=== PATIENT | male | born 1965 | race Caucasian/White ===

== ENCOUNTER 2022-10-20 17:42 | Emergency (ER) | payer OTHER ==
[2022-10-20 18:35] LABS: #Basophils 0.1 thou/uL (0.0-0.2); #Eosinphils 0.1 thou/uL (0.0-0.7); #Lymphocytes 1.3 thou/uL (1.20-3.40); #Monocytes 0.5 thou/uL (0.11-0.59); #Neutrophils 7.5 thou/uL (1.40-6.50); %Basophils 0.8 % (0.0-1.0); %Eosinophils 1.4 % (0.0-10.0); %Lymphocytes 13.5 % (21.0-51.0); %Monocytes 5.5 % (0.0-10.0); %Neutrophils 78.8 % (42.0-75.0); Hemoglobin 12.9 g/dL (14.0-18.0); Mean Corpuscular HGB CONC 34.1 g/dL (32.0-36.0); Mean Corpuscular Hemoglobin 31.2 pg (27.0-31.0); Mean Corpuscular Volume 91.4 fl (78.0-98.0); Mean Platelet Volume 6.6 fL (7.4-10.4); Platelet Count 290 10x3/uL (130-400); RBC Distribution Width 12.7 % (11.5-14.5); Red Blood Cell (RBC) Count 4.14 mill/uL (4.70-6.10); White Blood Cell (WBC) Count 9.5 10x3/uL (4.8-10.8)
[2022-10-20] MEDS ORDERED: Ketorolac Tromethamine 30 MG/ML VIAL ONE (18:52)
[2022-10-20] MEDS ORDERED: Morphine 4 MG/ML VIAL ONE (18:52)
[2022-10-20 18:56] LABS: ALT (SGPT) 17 U/L (8-55); AST (SGOT) 19 U/L (5-34); Alkaline Phosphatase 65 U/L (40-110); Anion Gap 14 mmol/L (10-20); BUN (Urea Nitrogen) 10 mg/dL (8.4-25.7); Bilirubin, Total 0.5 mg/dL (0.2-1.2); Calc. Creatinine Clearance 0 mL/min (70-130); Calcium 8.9 mg/dL (7.8-10.44); Carbon Dioxide 23 mmol/L (22-29); Chloride 106 mmol/L (98-107); Estimated GFR 93; Globulin 3.2 g/dL (2.4-3.5); Glucose 146 mg/dL (70-105); Potassium 4.2 mmol/L (3.5-5.1); Protein, Total 7.2 g/dL (6.0-8.3); Sodium 139 mmol/L (136-145)
[2022-10-20] MEDS ORDERED: Naproxen 500 MG TAB ONE (19:35)
[2022-10-20] MEDS ORDERED: Cephalexin 250 MG CAP ONE (19:42)
== END 2022-10-20 19:45 ==
LOC: ERS 17:42
DX: L03.113 Cellulitis of right upper limb (principal); M25.521 Pain in right elbow; E11.9 Type 2 diabetes mellitus without complications; Z79.4 Long term (current) use of insulin; Z79.84 Long term (current) use of oral hypoglycemic drugs
CPT/HCPCS: 36415; 80053; 85025; J1885; J2270

== ENCOUNTER 2022-12-16 12:40 | Inpatient (IN) | payer OTHER ==
[~2022-12-16 12:40] MED LIST: Iopamidol-370 76% 500 ML MDV (1 ML CHARGE) ONE
[2022-12-16 13:39] LABS: #Eosinphils 0.2 thou/uL (0.0-0.7); #Lymphocytes 1.4 thou/uL (1.20-3.40); #Monocytes 0.4 thou/uL (0.11-0.59); #Neutrophils 4.5 thou/uL (1.40-6.50); %Basophils 0.7 % (0.0-1.0); %Eosinophils 2.6 % (0.0-10.0); %Lymphocytes 22.1 % (21.0-51.0); %Neutrophils 68.6 % (42.0-75.0); Hemoglobin 12.6 g/dL (14.0-18.0); Mean Corpuscular HGB CONC 33.5 g/dL (32.0-36.0); Mean Corpuscular Hemoglobin 29.9 pg (27.0-31.0); Mean Corpuscular Volume 89.3 fl (78.0-98.0); Mean Platelet Volume 7.1 fL (7.4-10.4); Platelet Count 235 10x3/uL (130-400); Red Blood Cell (RBC) Count 4.21 mill/uL (4.70-6.10); White Blood Cell (WBC) Count 6.5 10x3/uL (4.8-10.8)
[2022-12-16 14:02] LABS: ALT (SGPT) 16 U/L (8-55); AST (SGOT) 17 U/L (5-34); Albumin 4.1 g/dL (3.5-5.0); Alkaline Phosphatase 78 U/L (40-110); Anion Gap 15 mmol/L (10-20); BUN (Urea Nitrogen) 18 mg/dL (8.4-25.7); Bilirubin, Total 0.4 mg/dL (0.2-1.2); Calc. Creatinine Clearance 0 mL/min (70-130); Calcium 9.4 mg/dL (7.8-10.44); Carbon Dioxide 19 mmol/L (22-29); Chloride 106 mmol/L (98-107); Estimated GFR 80; Globulin 3.6 g/dL (2.4-3.5); Glucose 186 mg/dL (70-105); Potassium 4.4 mmol/L (3.5-5.1); Protein, Total 7.7 g/dL (6.0-8.3); Sodium 136 mmol/L (136-145)
[2022-12-16] MEDS ORDERED: Vancomycin HCl 2.5 GM in Sodium Chloride 0.9% 500 ML IVPB SCH (14:30)
[2022-12-16 14:51] LABS: Bilirubin Negative (Negative); Blood, Urine Negative (Negative); Clarity Clear (Clear); Glucose, Urine (Dipstick) 100 mg/dL (Negative); Ketone, Urine Negative (Negative); Leukocyte Negative Leu/uL (Negative); Nitrite Negative (Negative); Protein, Urine (Dipstick) Negative (Neg-Trace); Specific Gravity, Urine 1.022 (1.002-1.036); Urobilinogen Normal mg/dL (Less than 2); pH, Urine 6.5 (5.0-9.0)
[2022-12-16 15:47] LABS: SARS-CoV-2 NAA Rapid Test Not Detected (NotDetected)
[2022-12-16] MEDS ORDERED: Acetaminophen 500 MG TAB ONE (16:01)
[2022-12-16] MEDS ORDERED: Dextrose 5% in Water 1,000 ML IV PRN (16:44)
[2022-12-16] MEDS ORDERED: Dextrose 50% Abboject 50 ML SYRINGE SLOW IVP PRN (16:44)
[2022-12-16] MEDS ORDERED: Acetaminophen 325 MG TAB PO PRN (16:44)
[2022-12-16] MEDS ORDERED: HumaLOG 300 UNITS/3 ML VIAL SC PRN ×2 (16:44)
[2022-12-16] MEDS ORDERED: hydrALAZINE 20 MG/ML VIAL SLOW IVP PRN (16:44)
[2022-12-16 17:30] VITALS: BMI 31.2
[2022-12-16] MEDS: HYDROcodone/Acetaminophen 5/325 mg Tablet PO PRN (20:39)
[2022-12-16] MEDS ORDERED: Vancomycin 1 GM in Premix Bag 1 BAG IVPB SCH (21:00)
[2022-12-17] MEDS: Vancomycin 1 GM in Premix Bag 1 BAG IVPB SCH ×2 (02:43→15:31)
[2022-12-17 07:45] LABS: #Eosinphils 0.2 thou/uL (0.0-0.7); #Lymphocytes 1.3 thou/uL (1.20-3.40); #Monocytes 0.4 thou/uL (0.11-0.59); #Neutrophils 3.1 thou/uL (1.40-6.50); %Basophils 0.3 % (0.0-1.0); %Eosinophils 3.1 % (0.0-10.0); %Lymphocytes 25.3 % (21.0-51.0); %Monocytes 7.9 % (0.0-10.0); %Neutrophils 63.4 % (42.0-75.0); Hemoglobin 12.5 g/dL (14.0-18.0); Mean Corpuscular HGB CONC 33.8 g/dL (32.0-36.0); Mean Corpuscular Hemoglobin 30.6 pg (27.0-31.0); Mean Corpuscular Volume 90.4 fl (78.0-98.0); Mean Platelet Volume 6.9 fL (7.4-10.4); Platelet Count 214 10x3/uL (130-400); RBC Distribution Width 13.1 % (11.5-14.5); Red Blood Cell (RBC) Count 4.09 mill/uL (4.70-6.10); White Blood Cell (WBC) Count 4.9 10x3/uL (4.8-10.8)
[2022-12-17 08:01] LABS: Anion Gap 13 mmol/L (10-20); BUN (Urea Nitrogen) 13 mg/dL (8.4-25.7); Calc. Creatinine Clearance 125 mL/min (70-130); Calcium 8.8 mg/dL (7.8-10.44); Carbon Dioxide 23 mmol/L (22-29); Chloride 104 mmol/L (98-107); Estimated GFR 93; Glucose 139 mg/dL (70-105); Sodium 136 mmol/L (136-145)
[2022-12-17] MEDS: HYDROcodone/Acetaminophen 5/325 mg Tablet PO PRN ×2 (09:36→21:32)
[2022-12-17] MEDS ORDERED: Insulin Regular 300 UNITS/3 ML VIAL SC SCH (10:15)
[2022-12-17] MEDS ORDERED: Piperacillin/Tazobactam 3.375 GM in Sodium Chloride 0.9% 100 ML IVPB SCH ×2 (12:00→14:00)
[2022-12-17] MEDS ORDERED: Non-Formulary Item 1 EACH (Metformin Hcl [Metformin Hcl] 1,000 MG Tablet) PO SCH (21:00)
[2022-12-17] MEDS ORDERED: Insulin NPH Human Isophane 100 UNIT/ML (10 ML VIAL) SC SCH (21:00)
[2022-12-17] MEDS: Terazosin HCl 5 MG CAP PO SCH (21:31)
[2022-12-17] MEDS: Atorvastatin Calcium 20 MG TAB PO SCH (21:31)
[2022-12-17] MEDS: metFORMIN 500 MG TAB PO SCH (21:31)
[2022-12-17] MEDS: Piperacillin/Tazobactam 3.375 GM in Sodium Chloride 0.9% 100 ML IVPB SCH (21:32)
[2022-12-17] MEDS: Insulin NPH Human Isophane 100 UNIT/ML (10 ML VIAL) SC SCH (21:33)
[2022-12-18 02:51] LABS: #Eosinphils 0.1 thou/uL (0.0-0.7); #Monocytes 0.3 thou/uL (0.11-0.59); #Neutrophils 4.7 thou/uL (1.40-6.50); %Basophils 0.2 % (0.0-1.0); %Eosinophils 2.3 % (0.0-10.0); %Lymphocytes 16.4 % (21.0-51.0); %Monocytes 4.5 % (0.0-10.0); %Neutrophils 76.6 % (42.0-75.0); Hemoglobin 12.4 g/dL (14.0-18.0); Mean Corpuscular HGB CONC 33.4 g/dL (32.0-36.0); Mean Corpuscular Hemoglobin 30.4 pg (27.0-31.0); Mean Platelet Volume 6.9 fL (7.4-10.4); Platelet Count 217 10x3/uL (130-400); RBC Distribution Width 13.1 % (11.5-14.5); Red Blood Cell (RBC) Count 4.08 mill/uL (4.70-6.10); White Blood Cell (WBC) Count 6.2 10x3/uL (4.8-10.8)
[2022-12-18 03:11] LABS: Vancomycin, Trough 8.8 ug/mL
[2022-12-18 03:16] LABS: Anion Gap 13 mmol/L (10-20); BUN (Urea Nitrogen) 17 mg/dL (8.4-25.7); CRP (Inflammatory) 1.21 mg/dL (= or < 0.5); Calc. Creatinine Clearance 108 mL/min (70-130); Calcium 8.9 mg/dL (7.8-10.44); Carbon Dioxide 23 mmol/L (22-29); Chloride 102 mmol/L (98-107); Estimated GFR 78; Glucose 198 mg/dL (70-105); Potassium 4.4 mmol/L (3.5-5.1); Sodium 134 mmol/L (136-145)
[2022-12-18] MEDS: Vancomycin 1.5 GRAM/300 ML BAG 1.5 GM in Premix Bag 1 BAG IVPB SCH ×2 (04:01→17:18)
[2022-12-18] MEDS: Vancomycin 1 GM in Premix Bag 1 BAG IVPB SCH (04:02)
[2022-12-18] MEDS: Piperacillin/Tazobactam 3.375 GM in Sodium Chloride 0.9% 100 ML IVPB SCH ×3 (06:16→22:03)
[2022-12-18] MEDS: Levothyroxine Sodium 50 MCG TAB PO SCH (06:16)
[2022-12-18] MEDS: Insulin NPH Human Isophane 100 UNIT/ML (10 ML VIAL) SQ SCH (08:08)
[2022-12-18] MEDS: metFORMIN 500 MG TAB PO SCH ×2 (08:09→22:04)
[2022-12-18] MEDS ORDERED: Non-Formulary Item 1 EACH (Levothyroxine Sodium [Levothyroxine] 50 MCG Capsule) PO SCH (09:00)
[2022-12-18] MEDS: Atorvastatin Calcium 20 MG TAB PO SCH (22:03)
[2022-12-18] MEDS: Terazosin HCl 5 MG CAP PO SCH (22:04)
[2022-12-18] MEDS: Insulin NPH Human Isophane 100 UNIT/ML (10 ML VIAL) SC SCH (22:06)
[2022-12-19] MEDS: Vancomycin 1.5 GRAM/300 ML BAG 1.5 GM in Premix Bag 1 BAG IVPB SCH (04:00)
[2022-12-19] MEDS: Levothyroxine Sodium 50 MCG TAB PO SCH (06:38)
[2022-12-19] MEDS: Piperacillin/Tazobactam 3.375 GM in Sodium Chloride 0.9% 100 ML IVPB SCH ×2 (06:39→13:10)
[2022-12-19] MEDS: metFORMIN 500 MG TAB PO SCH (09:16)
[2022-12-19] MEDS: Insulin NPH Human Isophane 100 UNIT/ML (10 ML VIAL) SQ SCH (09:16)
[2022-12-19 11:44] VITALS: BP 117/79; TEMP 97.9
== END 2022-12-19 13:21 | DRG 558 ==
LOC: ERS 12:40 → T4-B 16:48 → EEVIPCON 16:58
PROVIDERS: ADMIT Hospitalist; ATTEND Hospitalist
DX: M70.21 Olecranon bursitis, right elbow (principal); L03.113 Cellulitis of right upper limb; L92.8 Other granulomatous disorders of the skin and subcutaneous tissue; Z20.822 Contact with and (suspected) exposure to COVID-19; E03.9 Hypothyroidism, unspecified; E78.5 Hyperlipidemia, unspecified; M19.90 Unspecified osteoarthritis, unspecified site; E11.9 Type 2 diabetes mellitus without complications; Z96.641 Presence of right artificial hip joint; Z98.890 Other specified postprocedural states; Z87.891 Personal history of nicotine dependence; Z83.3 Family history of diabetes mellitus; Z79.899 Other long term (current) drug therapy; Z79.890 Hormone replacement therapy
CPT/HCPCS: 36415; 36416; 71045; 80048; 80053; 80202; 81003; 83605; 85025; 86140; 87040; 87086; 96365; 96366; 97139; J1650; J1815; J2543; J3370; J3370-JW; J3490; J7030; Q9967; U0002